=== PATIENT | male | born 1995 | race Caucasian/White ===

== ENCOUNTER 2016-12-30 06:00 | Inpatient (IN) | payer MEDICAID ==
--- NOTE | ~2016-12-30 | HP ---
Unit #: [id number] #: [id number] Patient: DWIGHT RANKIN [id number] [place] [address] [id number] I MR#: [id number] NAME: DWIGHT RANKIN ROOM: P176 Age: 21 Sex: M Admission Date: 12/30/2016 : 1995 Attending Physician: Fercho Torres M.D. Admitting Physician: Fercho Torres M.D. Primary Care Physician: Primary Care Physician No HISTORY AND PHYSICAL HISTORY OF PRESENT ILLNESS Dwight is a 21-year-old male admitted on 12/30/2016 to [facility] for detox from opioids. PAST MEDICAL HISTORY Asthma. PAST SURGICAL HISTORY None. SOCIAL HISTORY The patient is single and homeless. No tobacco or alcohol use. Does report use of methamphetamines, oxycodone. History of spice use. FAMILY HISTORY Noncontributory. REVIEW OF SYSTEMS CONSTITUTIONAL: No fever or chills. HEENT: Denies any sore throat, ear pain or runny nose. CARDIOVASCULAR: Denies chest pain, irregular heart rhythm or palpitations. CHEST: Denies shortness of breath or cough. No hemoptysis. GASTROINTESTINAL: Denies nausea, vomiting, diarrhea or chronic constipation. ENDOCRINE: Denies history of increased thirst or urination. No recent significant weight loss or gain. GENITOURINARY: Denies dysuria, frequency, or hematuria. SKIN: Denies any rashes. HEMATOLOGIC: Denies history of increased bleeding or bruising. MUSCULOSKELETAL: Denies any hot, swollen joints. No generalized muscle pain. NEUROLOGIC: Denies problems with vision or speech. No frequent, severe headaches. No numbness, tingling or weakness in any extremities. Denies loss of bladder or bowel control. CURRENT MEDICATIONS None. ALLERGIES None. Unit #: [id number] #: [id number] Patient: DWIGHT RANKIN PHYSICAL EXAMINATION GENERAL: Alert, oriented, in no acute distress. VITAL SIGNS: Blood pressure 103/54, heart rate 90, respirations 16, temperature 97.7. HEIGHT: 5 foot 6 inches. WEIGHT: 118 pounds. SKIN: Warm and dry without rash or lesion. HEENT: Normocephalic. TMs not viewed. Oral and nasal passages clear. Conjunctivae clear. PERRLA. EOMs intact. NECK: Supple without lymphadenopathy or thyromegaly. HEART: Regular rate and rhythm without murmur. LUNGS: Clear. ABDOMEN: Soft, nontender, without masses or hepatosplenomegaly. : Not done. EXTREMITIES: No evidence of cyanosis, clubbing or edema. Moves all without focal deficit. NEUROLOGICAL: Grossly within normal limits. Cranial Nerves: II: Visual parsons are intact. III, IV AND : Extraocular movements are intact. Pupils are equal, round and reactive to light. V: Facial sensation is grossly normal. VII: Facial movements and expression are normal. VIII: Auditory acuity grossly intact. IX, X: Uvula is midline. Phonation is normal. XI: Patient shrugs shoulders and turns head normally. XII: Tongue protrudes in the midline. Sensory and Motor Function: Sensory and motor sensation is grossly normal. Motor: moves all extremities well. Coordination: Gait is normal. Deep Tendon Reflexes: Intact. IMPRESSION Psychiatric admission. RECOMMENDATIONS Psychiatric, per psychiatrist. MEDICAL: I see no contraindications to participating in facility's activities. MEDICAL PROGNOSIS Good. MEDICAL CONDITION Stable. Dictated by... Lis Hardy/bess TD: 12/31/2016 00:03 JOB #: [id number] Unit #: [id number] #: [id number] Patient: DWIGHT RANKIN HISTORY AND PHYSICAL Page 1 of 1 X YAN ROCHE APRN X HISTORY AND PHYSICAL
--- NOTE | ~2016-12-30 | DS ---
Unit #: [id number] #: [id number] Patient: ASHLEE RANKIN [id number] [facility] [address] [place] [address] [id number] I MR#: [id number] NAME: ASHLEE RANKIN ROOM: P176 Age: 21 Sex: M Admission Date: 12/30/2016 : 1995 Discharge Date: 01/01/2017 Attending Physician: Fercho Torres M.D. Primary Care Physician: Primary Care Physician No DISCHARGE SUMMARY REASON FOR ADMISSION The patient is a 21-year-old white male, admitted for opioid detox. HOSPITAL COURSE The patient was admitted to the [facility] unit and placed on routine detoxification protocol for opioids. He remained quite somnolent throughout much of stay in the hospital, but by 01/01/2017 was in brighter spirits and denied suicidal ideation. He requested discharge from the hospital on that date stating that he would return to the [facility], where he had previously been in chemical dependency treatment. He vehemently denied suicidal ideation and discharge was ordered. FINAL DIAGNOSES Opioid use disorder, dysthymic disorder. DISPOSITION ON DISCHARGE The patient is discharged on no psychotropic or other medications. FOLLOWUP Followup will take place through the auspices of community mental health resources. PROGNOSIS The patient's prognosis is considered fair. Dictated by... Fercho Torres M.D. RACHEL/igor TD: 01/01/2017 23:03 JOB #: [id number] Unit #: [id number] #: [id number] Patient: ASHLEE RANKIN DISCHARGE SUMMARY Page 1 of 1 X Fercho Torres MD X DISCHARGE SUMMARY
--- NOTE | ~2016-12-30 | PN ---
Unit #: [id number] #: [id number] Patient: ASHLEE RANKIN [id number] [facility] [address] [place] [address] [id number] I MR#: [id number] NAME: ASHLEE RANKIN ROOM: 76 Age: 21 Sex: M Admission Date: 12/30/2016 : 1995 Attending Physician: Fercho Torres M.D. Admitting Physician: Fercho Torres M.D. Primary Care Physician: Primary Care Physician Imani BUTLER PROGRESS NOTES DATE 12/31/2016 DISCUSSION The patient is again abed resting comfortably today and again multiple attempts to arouse the patient were unsuccessful. His most recent COW score was a 2. I would expect a.m. discharge with the patient to follow in the intensive outpatient program. Dictated by... Fercho Torres M.D. CB/bess TD: 01/01/2017 01:18 JOB #: [id number] [facility] PROGRESS NOTES Page 1 of 1 X Fercho Torres MD PROGRESS NOTE
--- NOTE | ~2016-12-30 | PA ---
Unit #: [id number] #: [id number] Patient: ASHLEE RANKIN [id number] [facility] [address] [place] [address] [id number] I MR#: [id number] NAME: ASHLEE RANKIN ROOM: P176 Age: 21 Sex: M Admission Date: 12/30/2016 : 1995 Date of Assessment: 12/30/2016 Attending Physician: Fercho Torres M.D. Admitting Physician: Fercho Torres M.D. Primary Care Physician: Primary Care Physician No PSYCHIATRIC ASSESSMENT IDENTIFYING INFORMATION The patient is a 21-year-old homeless white male with a history of polysubstance dependence and suicidal ideation. CHIEF COMPLAINT None given INFORMANT Chart. Patient cannot be aroused for interview. HISTORY OF PRESENT ILLNESS The patient is a 21-year-old single white male who is currently homeless. He is admitted reporting positive suicidal ideation with a plan to cut his wrist. He apparently has one previous suicide attempt by similar means. The patient reports that the recent of a childhood friend from an overdose has been the precipitant to his suicidal thinking. The patient reports that he has been using oxycodone, methamphetamine and cannabis. He does report that he uses drugs intravenously. The patient cannot be aroused for interview today and history cannot be obtained. PAST PSYCHIATRIC HISTORY As above. PAST MEDICAL HISTORY Cannot be obtained. MEDICATIONS None. ALLERGIES None. FAMILY HISTORY Noncontributory SOCIAL HISTORY The patient as noted previously is currently homeless. His substance use history is as noted previously. MENTAL STATUS EXAMINATION At this time reveals the patient to be a soundly sleeping white male multiple attempts to arouse him were at last unsuccessful. Unit #: [id number] #: [id number] Patient: ASHLEE RANKIN ASSETS AND LIABILITIES ASSETS: To be assessed. LIABILITIES: Lack of resources. DIAGNOSTIC IMPRESSION 1. Methamphetamine use disorder 2. Opioid use disorder 3. Dysthymic disorder 4. Cannabis use disorder TREATMENT PLAN The patient remains hospitalized for safety and stabilization. A routine detoxification protocol for opioids has been initiated. The patient will participate in appropriate lewis and milieu activities and suicidal precautions are in place. Once more adequate evaluation is possible consideration may be given to initiation of antidepressant medication should the patient be felt to warrant this treatment modality. ESTIMATED LENGTH OF STAY Five days. Dictated by... Omar Wilhelm TD: 12/31/2016 03:07 JOB #: [id number] PSYCHIATRIC ASSESSMENT Page 1 of 1 X Fercho Torres MD PSYCHIATRIC ASSESSMENT
[2016-12-31 09:31] LABS: BASOPHIL% 0.5 % (0-2.5); EOSINOPHIL# 0.2 X10e3 (0-0.7); EOSINOPHIL% 2.5 % (0.0-7.0); HEMATOCRIT 45.6 % (38.0-50.0); HEMOGLOBIN 15.1 gm/dL (13.0-16.0); LYMPHOCYTE# 2.7 X10e3 (1.0-3.5); LYMPHOCYTE% 42.2 % (17.0-45.0); MEAN CELL VOLUME 88.7 FL (83-96); MEAN CORPUSCULAR HEMOGLOBIN 29.3 PG (28-34); MEAN CORPUSCULAR HGB CONC 33.1 g/dL (30-36); MEAN PLATELET VOLUME 8.2 FL (6.5-11.5); MONOCYTE# 0.8 X10e3 (0-1.0); MONOCYTE% 12.1 % (3.0-12.0); NEUTROPHIL# 2.7 X10e3 (1.5-7.1); NEUTROPHIL% 42.7 % (40-75); PLATELET COUNT 230 X10e3 (140-420); RED BLOOD COUNT 5.15 X10e (3.90-5.60); RED CELL DISTRIBUTION WIDTH 14.9 % (11.0-15.5); WHITE BLOOD COUNT 6.4 X10e3 (4.0-10.5)
[2016-12-31 09:41] LABS: DIFF IND NO
[2016-12-31 09:50] LABS: ALBUMIN SERUM 4.6 g/dL (3.5-5.0); BUN/CREATININE RATIO 31.66; CALCIUM SERUM 9.5 mg/dL (8.4-10.2); CREATININE SERUM 0.6 mg/dL (0.6-1.4); GLOM FILT RATE Estimated 144.8 mL/min (>60); POTASSIUM 4.2 mmol/L (3.5-5.1); PROTEIN TOTAL SERUM 7.1 g/dL (6.0-8.3)
[2016-12-31 12:53] LABS: URINE APPEARANCE CLOUDY; URINE BILIRUBIN NEG (NEG); URINE BLOOD NEG (NEG); URINE COLOR DK YELLOW; URINE GLUCOSE NEG (NEG); URINE KETONE NEG (NEG); URINE LEUKOCYTE ESTERASE NEG (NEG); URINE NITRATE NEG (NEG); URINE PROTEIN 2+ (NEG); URINE SPECIFIC GRAVITY 1.032 (1.003-1.035)
[2016-12-31 12:56] LABS: URINE BACTERIA AUWI NEG (NEGATIVE); URINE SQUAMOUS EPITHELIAL CELL OCC /[HPF]
[2016-12-31 13:06] LABS: AMPHETAMINE POS (NEG); BARBITURATES NEG (NEG); BENZODIAZEPINES NEG (NEG); COCAINE NEG (NEG); MARIJUANA POS (NEG); OPIATES NEG (NEG); TRICYCLIC ANTIDEPRESSANTS POS (NEG); U METHADONE NEG (NEG)
[2017-01-04 08:51] LABS: HA AB IGM (HEPPAN) Nonreactive (()); HB CORE AB IGM (HEPPAN) Nonreactive (Nonreactive); HB S AG (HEPPAN) Nonreactive (Nonreactive); HEP C AB (HEPPAN) Nonreactive (Nonreactive); HEP C AB SIGNAL TO CUTOFF 0.02 ratio (<1.00)
== END 2017-01-01 16:05 | disposition home or self-care (01) | DRG 897 ==
LOC: P1E 06:00
PROVIDERS: Specialist
PROC: HZ2ZZZZ Detoxification Services for Substance Abuse Treatment (ICD-10-PCS; principal; 2016-12-30)
DX: F11.10 Opioid abuse, uncomplicated (principal); R45.851 Suicidal ideations; F34.1 Dysthymic disorder
CPT/HCPCS: 80053; 80074; 80307; 81003; 85025; 86592; 87806